=== PATIENT | male | born 1940 | race Caucasian/White ===

== ENCOUNTER 2021-03-19 12:37 | Inpatient (IN) ==
[2021-03-19] MEDS ORDERED: ONDANSETRON 4 MG/2 ML VIAL IV STA (13:08)
[2021-03-19 13:29] LABS: Basophils % 0.5 % (0.0-0.8); Eosinophils # 0.2 10*3/uL (0.0-0.87); Eosinophils % 3.6 % (0.00-10.9); Hematocrit 36.7 VOL% (42.0-52.0); Hemoglobin 11.8 GM/DL (14.0-18.0); Immature Granulocytes % 0.3 %; Immature Granulocytes Absolute 0.02 #; Lymphocytes % 16.8 % (21.2-54.2); Mean Corpuscular HGB Conc 32.2 GM/DL (32-36); Mean Corpuscular Volume 86.6 FL (87-102); Mean Platelet Volume 9.9 FL (9.6-12.0); Monocytes % 15.4 % (1.7-12.7); Neutrophils % 63.4 % (38.7-73.9); Platelet Count 342 T/CUMM (130-400); Red Blood Count 4.24 MC/CUMM (3.8-5.5); Red Cell Distribution Width 14.5 % (9.3-17.3); White Blood Count 5.8 T/CUMM (4-12)
[2021-03-19 13:54] LABS: Albumin 3.6 G/DL (3.4-5.0); Bilirubin,Total 0.9 MG/DL (0.20-1.00); Calcium 9.4 MG/DL (8.5-10.1); Potassium 4.6 MMOL/L (3.5-5.1); Total Protein 7.8 G/DL (6.4-8.2)
[2021-03-19] MEDS ORDERED: SODIUM CHLORIDE 0.9% 1,000 ML IV STA (14:42)
[2021-03-19] MEDS ORDERED: ONDANSETRON 4 MG/2 ML VIAL IV PRN (15:56)
[2021-03-19] MEDS ORDERED: DEXTROSE 50% 25 GM/50 ML SYRINGE IV PRN (15:56)
[2021-03-19] MEDS ORDERED: GLUCAGON 1 MG VIAL IM PRN (15:56)
[2021-03-19] MEDS ORDERED: ALBUTEROL/IPRATROPIUM 3 ML NEB RESP TX PRN (15:59)
[2021-03-19] MEDS ORDERED: PIPERACILLIN/TAZOBACTAM 3,375 MG in SODIUM CHLORIDE 0.9% 100 ML IV SCH (16:00)
[2021-03-19] MEDS ORDERED: VANCOMYCIN INJ 1,750 MG in SODIUM CHLORIDE 0.9% 250 ML IV SCH (16:00)
[2021-03-19] MEDS: LACTATED RINGERS 1,000 ML IV SCH (18:00)
[2021-03-19] MEDS: INSULIN LISPRO 100 UNIT/ML SUBCUT SCH (18:00)
[2021-03-19] MEDS ORDERED: DOCUSATE SODIUM 100 MG CAPSULE PO SCH (21:00)
[2021-03-19] MEDS: HYDROmorphone 2 MG/1 ML VIAL IV PRN (23:31)
[2021-03-20 03:09] LABS: Bilirubin,Urine Negative (Negative); Blood, Urine Negative (Negative); Glucose,Urine (UA) Negative (Negative); Ketones,Urine Negative (Negative); Mucus,Urine Occasional /LPF (Occasional); Nitrite,Urine Negative (Negative); Protein,Urine 100 MG/DL; RBC,Urine <1 /HPF (0-4); Squamous Epithelial Cell,Urine Occasional /HPF (0-10); Urine Appearance CLEAR (Clear); Urine Color Yellow (Yellow); Urine Specific Gravity 1.015 (1.001-1.035); Urine Urobilinogen < 2.0 EU/DL (<2.0)
[2021-03-20] MEDS: LACTATED RINGERS 1,000 ML IV SCH ×4 (04:28→23:05)
[2021-03-20 05:31] LABS: Basophils % 0.7 % (0.0-0.8); Eosinophils # 0.3 10*3/uL (0.0-0.87); Eosinophils % 4.9 % (0.00-10.9); Hematocrit 33.7 VOL% (42.0-52.0); Hemoglobin 10.5 GM/DL (14.0-18.0); Immature Granulocytes % 0.4 %; Immature Granulocytes Absolute 0.02 #; Lymphocytes # 1.3 10*3/uL (1.4-4.0); Lymphocytes % 23.8 % (21.2-54.2); Mean Corpuscular HGB Conc 31.2 GM/DL (32-36); Mean Corpuscular Volume 87.8 FL (87-102); Mean Platelet Volume 10.5 FL (9.6-12.0); Monocytes % 20.1 % (1.7-12.7); Neutrophils % 50.1 % (38.7-73.9); Platelet Count 284 T/CUMM (130-400); Red Blood Count 3.84 MC/CUMM (3.8-5.5); Red Cell Distribution Width 14.3 % (9.3-17.3); White Blood Count 5.5 T/CUMM (4-12)
[2021-03-20 05:49] LABS: Calcium 8.5 MG/DL (8.5-10.1); Osmolality,Calculated 283.7 MOS/KG (273-304); Potassium 4.3 MMOL/L (3.5-5.1)
[2021-03-20 05:57] LABS: Band Neutrophils 14 % (0-10); Eosinophils 7 % (0-10); Lymphocytes 27 % (20-55); Platelet Estimate Normal; Segmented Neutrophils 38 % (50-85); Total Cells Counted 100
[2021-03-20 05:58] LABS: Anisocytosis 1+; Smudge Cells Few
[2021-03-20] MEDS: INSULIN LISPRO 100 UNIT/ML SUBCUT SCH ×2 (08:25→18:36)
[2021-03-20] MEDS ORDERED: PANTOPRAZOLE 40 MG TABLET PO SCH (09:00)
[2021-03-20] MEDS: ENOXAPARIN 40 MG/0.4 ML SYRINGE SUBCUT SCH (10:02)
[2021-03-20] MEDS: PANTOPRAZOLE 40 MG VIAL IV SCH (10:02)
[2021-03-20] MEDS ORDERED: hydrALAZINE 20 MG/1 ML VIAL IV PRN (10:43)
[2021-03-20] MEDS: HYDROmorphone 2 MG/1 ML VIAL IV PRN ×2 (13:31→17:03)
[2021-03-21 05:43] LABS: Basophils % 0.5 % (0.0-0.8); Eosinophils # 0.2 10*3/uL (0.0-0.87); Hematocrit 32.4 VOL% (42.0-52.0); Hemoglobin 10.2 GM/DL (14.0-18.0); Immature Granulocytes % 0.5 %; Immature Granulocytes Absolute 0.04 #; Lymphocytes # 1.4 10*3/uL (1.4-4.0); Mean Corpuscular HGB Conc 31.5 GM/DL (32-36); Mean Corpuscular Volume 87.6 FL (87-102); Mean Platelet Volume 9.9 FL (9.6-12.0); Monocytes % 17.4 % (1.7-12.7); Neutrophils % 62.6 % (38.7-73.9); Platelet Count 273 T/CUMM (130-400); Red Cell Distribution Width 13.9 % (9.3-17.3); White Blood Count 8.5 T/CUMM (4-12)
[2021-03-21 06:05] LABS: Calcium 8.5 MG/DL (8.5-10.1); Osmolality,Calculated 280.5 MOS/KG (273-304)
[2021-03-21 06:07] LABS: Band Neutrophils 1 % (0-10); Eosinophils 2 % (0-10); Lymphocytes 17 % (20-55); Segmented Neutrophils 68 % (50-85); Total Cells Counted 100
[2021-03-21 06:08] LABS: Hypochromia 1+; Microcytosis 1+
[2021-03-21] MEDS: ENOXAPARIN 40 MG/0.4 ML SYRINGE SUBCUT SCH (08:42)
[2021-03-21] MEDS: PANTOPRAZOLE 40 MG VIAL IV SCH (08:43)
[2021-03-21] MEDS: LACTATED RINGERS 1,000 ML IV SCH ×3 (08:45→21:47)
[2021-03-21] MEDS: INSULIN LISPRO 100 UNIT/ML SUBCUT SCH ×2 (08:49→18:09)
[2021-03-21] MEDS: HYDROmorphone 2 MG/1 ML VIAL IV PRN ×3 (09:50→21:46)
[2021-03-21] MEDS: HEPARIN DRIP 25,000 UNITS/500 ML PREMIX IV SCH (12:03)
[2021-03-21] MEDS ORDERED: ACETAMINOPHEN 650 MG SUPP RECTAL PRN (17:08)
[2021-03-22] MEDS: HEPARIN DRIP 25,000 UNITS/500 ML PREMIX IV SCH ×2 (01:59→11:59)
[2021-03-22 02:20] LABS: Basophils % 0.4 % (0.0-0.8); Eosinophils # 0.2 10*3/uL (0.0-0.87); Eosinophils % 2.4 % (0.00-10.9); Hematocrit 31.3 VOL% (42.0-52.0); Hemoglobin 10.3 GM/DL (14.0-18.0); Immature Granulocytes % 0.4 %; Immature Granulocytes Absolute 0.04 #; Lymphocytes # 1.5 10*3/uL (1.4-4.0); Lymphocytes % 16.8 % (21.2-54.2); Mean Corpuscular HGB Conc 32.9 GM/DL (32-36); Mean Corpuscular Volume 85.5 FL (87-102); Mean Platelet Volume 9.6 FL (9.6-12.0); Monocytes % 19.6 % (1.7-12.7); Neutrophils % 60.4 % (38.7-73.9); Platelet Count 270 T/CUMM (130-400); Red Blood Count 3.66 MC/CUMM (3.8-5.5); Red Cell Distribution Width 13.7 % (9.3-17.3)
[2021-03-22 02:38] LABS: Calcium 8.8 MG/DL (8.5-10.1); Potassium 3.7 MMOL/L (3.5-5.1)
[2021-03-22 02:53] LABS: Band Neutrophils 2 % (0-10); Eosinophils 6 % (0-10); Lymphocytes 18 % (20-55); Segmented Neutrophils 54 % (50-85); Total Cells Counted 100
[2021-03-22 02:54] LABS: Hypochromia 2+; Platelet Estimate Normal; Reactive Lymphocytes Few
[2021-03-22] MEDS ORDERED: HEPARIN 5,000 UNIT/1 ML VIAL SUBCUT ONE (02:56)
[2021-03-22] MEDS: LACTATED RINGERS 1,000 ML IV SCH (03:09)
[2021-03-22] MEDS: INSULIN LISPRO 100 UNIT/ML SUBCUT SCH ×2 (07:40→17:08)
[2021-03-22] MEDS ORDERED: MAGNESIUM SULF RIDER 2 GM/50 ML PREMIX IV PRN (07:52)
[2021-03-22] MEDS ORDERED: MAGNESIUM SULF RIDER 4 GM/100 ML PREMIX IV PRN (07:52)
[2021-03-22] MEDS: PANTOPRAZOLE 40 MG VIAL IV SCH (09:15)
[2021-03-22] MEDS: HYDROmorphone 2 MG/1 ML VIAL IV PRN ×3 (09:15→20:41)
[2021-03-22] MEDS: METHOCARBAMOL INJ 500 MG in SODIUM CHLORIDE 0.9% 100 ML IV SCH ×2 (09:19→17:38)
[2021-03-22] MEDS: DEXTROSE 5% LACTATED RINGERS 1,000 ML IV SCH ×2 (09:19→17:38)
[2021-03-22] MEDS: AZITHROMYCIN INJ 500 MG in SODIUM CHLORIDE 0.9% 250 ML IV SCH (20:45)
[2021-03-23] MEDS: cefTRIAXone 1,000 MG in SODIUM CHLORIDE 0.9% 100 ML IV SCH ×2 (00:20→21:55)
[2021-03-23] MEDS: DEXTROSE 5% LACTATED RINGERS 1,000 ML IV SCH ×2 (01:13→16:31)
[2021-03-23] MEDS: METHOCARBAMOL INJ 500 MG in SODIUM CHLORIDE 0.9% 100 ML IV SCH ×4 (01:17→23:42)
[2021-03-23] MEDS: HYDROmorphone 2 MG/1 ML VIAL IV PRN ×4 (01:52→23:41)
[2021-03-23 02:16] LABS: Bacteria,Urine Occasional /HPF (Few); Bilirubin,Urine Negative (Negative); Blood, Urine Negative (Negative); Glucose,Urine (UA) Negative (Negative); Ketones,Urine 5 mg/dL (Negative); Mucus,Urine Occasional /LPF (Occasional); Nitrite,Urine Negative (Negative); Protein,Urine 100 MG/DL; RBC,Urine 2 /HPF (0-4); Squamous Epithelial Cell,Urine Occasional /HPF (0-10); Urine Appearance CLEAR (Clear); Urine Color Yellow (Yellow); Urine Specific Gravity 1.017 (1.001-1.035)
[2021-03-23 05:43] LABS: Basophils % 0.4 % (0.0-0.8); Eosinophils # 0.3 10*3/uL (0.0-0.87); Eosinophils % 3.1 % (0.00-10.9); Hematocrit 31.4 VOL% (42.0-52.0); Immature Granulocytes % 0.7 %; Immature Granulocytes Absolute 0.06 #; Lymphocytes # 1.5 10*3/uL (1.4-4.0); Mean Corpuscular HGB Conc 31.8 GM/DL (32-36); Mean Corpuscular Volume 86.5 FL (87-102); Mean Platelet Volume 10.1 FL (9.6-12.0); Monocytes % 16.5 % (1.7-12.7); Neutrophils % 62.3 % (38.7-73.9); Platelet Count 293 T/CUMM (130-400); Red Blood Count 3.63 MC/CUMM (3.8-5.5); Red Cell Distribution Width 13.8 % (9.3-17.3); White Blood Count 8.9 T/CUMM (4-12)
[2021-03-23 06:07] LABS: Eosinophils 2 % (0-10); Hypochromia Slight; Lymphocytes 21 % (20-55); Microcytosis Slight; Platelet Estimate Adequate; Segmented Neutrophils 65 % (50-85); Total Cells Counted 100
[2021-03-23 06:34] LABS: Calcium 8.6 MG/DL (8.5-10.1); Osmolality,Calculated 275.8 MOS/KG (273-304); Potassium 4.2 MMOL/L (3.5-5.1)
[2021-03-23] MEDS: PANTOPRAZOLE 40 MG VIAL IV SCH (09:09)
[2021-03-23] MEDS: INSULIN LISPRO 100 UNIT/ML SUBCUT SCH ×2 (09:09→16:30)
[2021-03-23] MEDS: HEPARIN DRIP 25,000 UNITS/500 ML PREMIX IV SCH (13:33)
[2021-03-23] MEDS: AZITHROMYCIN INJ 500 MG in SODIUM CHLORIDE 0.9% 250 ML IV SCH (20:30)
[2021-03-24] MEDS: HEPARIN DRIP 25,000 UNITS/500 ML PREMIX IV SCH ×2 (01:48→13:59)
[2021-03-24] MEDS: DEXTROSE 5% LACTATED RINGERS 1,000 ML IV SCH ×4 (03:36→21:47)
[2021-03-24 05:45] LABS: Basophils % 0.5 % (0.0-0.8); Eosinophils # 0.3 10*3/uL (0.0-0.87); Hemoglobin 9.1 GM/DL (14.0-18.0); Immature Granulocytes % 0.5 %; Immature Granulocytes Absolute 0.04 #; Lymphocytes # 1.6 10*3/uL (1.4-4.0); Lymphocytes % 20.1 % (21.2-54.2); Mean Corpuscular HGB Conc 31.4 GM/DL (32-36); Mean Corpuscular Volume 88.4 FL (87-102); Mean Platelet Volume 11.1 FL (9.6-12.0); Monocytes % 16.6 % (1.7-12.7); Neutrophils % 58.3 % (38.7-73.9); Platelet Count 269 T/CUMM (130-400); Red Blood Count 3.28 MC/CUMM (3.8-5.5); Red Cell Distribution Width 13.8 % (9.3-17.3)
[2021-03-24 06:16] LABS: Eosinophils 4 % (0-10); Lymphocytes 21 % (20-55); Platelet Estimate Adequate; Segmented Neutrophils 59 % (50-85); Total Cells Counted 100
[2021-03-24 06:17] LABS: Hypochromia 1+; Microcytosis 1+
[2021-03-24] MEDS: METHOCARBAMOL INJ 500 MG in SODIUM CHLORIDE 0.9% 100 ML IV SCH ×2 (08:12→15:41)
[2021-03-24] MEDS: INSULIN LISPRO 100 UNIT/ML SUBCUT SCH ×2 (08:12→16:15)
[2021-03-24] MEDS: PANTOPRAZOLE 40 MG VIAL IV SCH (08:12)
[2021-03-24] MEDS: HYDROmorphone 2 MG/1 ML VIAL IV PRN ×3 (11:38→22:43)
[2021-03-24] MEDS: AZITHROMYCIN INJ 500 MG in SODIUM CHLORIDE 0.9% 250 ML IV SCH (21:44)
[2021-03-24] MEDS: cefTRIAXone 1,000 MG in SODIUM CHLORIDE 0.9% 100 ML IV SCH (23:21)
[2021-03-25] MEDS: METHOCARBAMOL INJ 500 MG in SODIUM CHLORIDE 0.9% 100 ML IV SCH ×3 (00:23→17:12)
[2021-03-25] MEDS: HEPARIN DRIP 25,000 UNITS/500 ML PREMIX IV SCH ×2 (01:20→13:29)
[2021-03-25] MEDS: HYDROmorphone 2 MG/1 ML VIAL IV PRN ×4 (04:05→22:30)
[2021-03-25] MEDS: ACETAMINOPHEN 325 MG TABLET PO PRN (04:05)
[2021-03-25 05:11] LABS: Basophils # 0.1 10*3/uL (0.0-0.2); Basophils % 0.5 % (0.0-0.8); Eosinophils # 0.4 10*3/uL (0.0-0.87); Eosinophils % 4.1 % (0.00-10.9); Hematocrit 29.8 VOL% (42.0-52.0); Hemoglobin 9.7 GM/DL (14.0-18.0); Immature Granulocytes % 0.5 %; Immature Granulocytes Absolute 0.05 #; Lymphocytes # 1.7 10*3/uL (1.4-4.0); Lymphocytes % 18.5 % (21.2-54.2); Mean Corpuscular HGB Conc 32.6 GM/DL (32-36); Mean Corpuscular Volume 85.6 FL (87-102); Mean Platelet Volume 10.6 FL (9.6-12.0); Monocytes % 17.7 % (1.7-12.7); Neutrophils % 58.7 % (38.7-73.9); Platelet Count 306 T/CUMM (130-400); Red Blood Count 3.48 MC/CUMM (3.8-5.5); Red Cell Distribution Width 13.5 % (9.3-17.3); White Blood Count 9.2 T/CUMM (4-12)
[2021-03-25 05:31] LABS: Calcium 8.4 MG/DL (8.5-10.1); Osmolality,Calculated 276.7 MOS/KG (273-304); Potassium 3.2 MMOL/L (3.5-5.1)
[2021-03-25] MEDS: DEXTROSE 5% LACTATED RINGERS 1,000 ML IV SCH ×4 (05:36→23:17)
[2021-03-25 05:41] LABS: Eosinophils 5 % (0-10); Hypochromia 1+; Lymphocytes 25 % (20-55); Microcytosis 1+; Platelet Estimate Adequate; Segmented Neutrophils 53 % (50-85); Total Cells Counted 100
[2021-03-25] MEDS ORDERED: propofoL 200 MG/20 ML VIAL IV ONE (08:02)
[2021-03-25] MEDS ORDERED: LIDOCAINE 2% 5 ML VIAL ONE (08:02)
[2021-03-25] MEDS ORDERED: SEVOFLURANE 1 UNIT/15 MINUTE INH ONE ×5 (08:02→12:24)
[2021-03-25] MEDS ORDERED: SUCCINYLCHOLINE 200 MG/10 ML VIAL ONE (08:03)
[2021-03-25] MEDS ORDERED: ROCURONIUM 50 MG/5 ML VIAL IV ONE ×2 (08:03→10:20)
[2021-03-25] MEDS ORDERED: fentaNYL 100 MCG/2 ML VIAL ONE ×3 (08:03→11:05)
[2021-03-25] MEDS ORDERED: ONDANSETRON 4 MG/2 ML VIAL ONE (08:03)
[2021-03-25] MEDS ORDERED: ACETAMINOPHEN INJ 1,000 MG/100 ML VIAL IV ONE (08:04)
[2021-03-25] MEDS ORDERED: DEXAMETHASONE 4 MG/1 ML VIAL ONE (08:04)
[2021-03-25] MEDS ORDERED: ETOMIDATE 40 MG/20 ML VIAL IV ONE (08:06)
[2021-03-25] MEDS ORDERED: POTASSIUM CHLORIDE RIDER 10 MEQ/100 ML PREMIX IV PRN (08:27)
[2021-03-25] MEDS ORDERED: hydrALAZINE 20 MG/1 ML VIAL IV ONE (08:30)
[2021-03-25] MEDS ORDERED: MAGNESIUM SULF RIDER 4 GM/100 ML PREMIX IV ONE (08:30)
[2021-03-25] MEDS ORDERED: PHENYLEPHRINE 1 MG/10 ML SYRINGE IV ONE ×2 (09:26→10:01)
[2021-03-25] MEDS ORDERED: LACTATED RINGERS 1,000 ML IV SCH (09:30)
[2021-03-25] MEDS ORDERED: ceFAZolin 1,000 MG VIAL ONE (09:39)
[2021-03-25] MEDS ORDERED: ePHEDrine 50 MG/ML VIAL ONE (09:41)
[2021-03-25] MEDS: INSULIN LISPRO 100 UNIT/ML SUBCUT SCH ×2 (09:51→17:32)
[2021-03-25] MEDS: PANTOPRAZOLE 40 MG VIAL IV SCH (09:52)
[2021-03-25] MEDS ORDERED: LACTATED RINGERS 1,000 ML IV ONE ×2 (10:02→12:17)
[2021-03-25] MEDS ORDERED: GLYCOPYRROLATE 0.4 MG/2 ML VIAL ONE ×2 (10:06→12:11)
[2021-03-25] MEDS ORDERED: ALBUMIN 5% 12.5 GM/250 ML VIAL IV ONE ×2 (10:08)
[2021-03-25] MEDS ORDERED: NEOSTIGMINE 10 MG/10 ML VIAL ONE (12:12)
[2021-03-25 13:51] LABS: Bacteria,Urine Occasional /HPF (Few); Bilirubin,Urine Negative (Negative); Blood, Urine Small mg/dL (Negative); Glucose,Urine (UA) Negative (Negative); Ketones,Urine Negative (Negative); Mucus,Urine Occasional /LPF (Occasional); Nitrite,Urine Negative (Negative); Protein,Urine 100 MG/DL; RBC,Urine 6 /HPF (0-4); Squamous Epithelial Cell,Urine Occasional /HPF (0-10); Urine Appearance CLEAR (Clear); Urine Color Yellow (Yellow); Urine Specific Gravity 1.009 (1.001-1.035); Urine Urobilinogen < 2.0 EU/DL (<2.0)
[2021-03-25] MEDS: POTASSIUM CHLORIDE RIDER 10 MEQ/100 ML PREMIX IV SCH ×2 (14:24→16:14)
[2021-03-25] MEDS ORDERED: FUROSEMIDE 40 MG/4 ML VIAL IV ONE (15:42)
[2021-03-25] MEDS: AZITHROMYCIN INJ 500 MG in SODIUM CHLORIDE 0.9% 250 ML IV SCH (20:53)
[2021-03-25] MEDS: cefTRIAXone 1,000 MG in SODIUM CHLORIDE 0.9% 100 ML IV SCH (22:06)
[2021-03-26] MEDS: METHOCARBAMOL INJ 500 MG in SODIUM CHLORIDE 0.9% 100 ML IV SCH ×3 (01:30→17:01)
[2021-03-26] MEDS: HYDROmorphone 2 MG/1 ML VIAL IV PRN ×6 (01:39→23:10)
[2021-03-26 05:46] LABS: Basophils % 0.4 % (0.0-0.8); Eosinophils # 0.1 10*3/uL (0.0-0.87); Eosinophils % 1.7 % (0.00-10.9); Hemoglobin 9.3 GM/DL (14.0-18.0); Immature Granulocytes % 0.4 %; Immature Granulocytes Absolute 0.03 #; Lymphocytes % 13.1 % (21.2-54.2); Mean Corpuscular HGB Conc 32.1 GM/DL (32-36); Mean Corpuscular Volume 87.1 FL (87-102); Monocytes % 11.8 % (1.7-12.7); Neutrophils % 72.6 % (38.7-73.9); Platelet Count 332 T/CUMM (130-400); Red Blood Count 3.33 MC/CUMM (3.8-5.5); White Blood Count 7.8 T/CUMM (4-12)
[2021-03-26 06:23] LABS: Calcium 8.5 MG/DL (8.5-10.1); Osmolality,Calculated 277.7 MOS/KG (273-304); Potassium 3.5 MMOL/L (3.5-5.1)
[2021-03-26] MEDS ORDERED: LACTATED RINGERS 500 ML IV ONE (07:37)
[2021-03-26] MEDS: INSULIN LISPRO 100 UNIT/ML SUBCUT SCH ×2 (08:48→17:48)
[2021-03-26] MEDS: PANTOPRAZOLE 40 MG VIAL IV SCH (09:15)
[2021-03-26] MEDS: DEXTROSE 5% LACTATED RINGERS 1,000 ML IV SCH (09:16)
[2021-03-26] MEDS: HEPARIN DRIP 25,000 UNITS/500 ML PREMIX IV SCH ×2 (10:51→23:06)
[2021-03-26 14:37] LABS: Calcium 8.2 MG/DL (8.5-10.1); Osmolality,Calculated 278.5 MOS/KG (273-304); Potassium 3.7 MMOL/L (3.5-5.1)
[2021-03-26] MEDS: FAT EMULSION 20% 250 ML IV SCH (16:50)
[2021-03-26] MEDS: LACTATED RINGERS 1,000 ML IV SCH (17:00)
[2021-03-26] MEDS ORDERED: DEXTROSE 10% 1,000 ML IV PRN (17:00)
[2021-03-26] MEDS ORDERED: ZINC/COPPER/MANGANESE/SELENIUM 1 ML, MULTIVITAMIN INJ 10 ML in AMINO ACIDS/DEXT/LYTES 5... IV SCH (17:00)
[2021-03-26] MEDS: AZITHROMYCIN INJ 500 MG in SODIUM CHLORIDE 0.9% 250 ML IV SCH (20:49)
[2021-03-26] MEDS: cefTRIAXone 1,000 MG in SODIUM CHLORIDE 0.9% 100 ML IV SCH (22:30)
[2021-03-27] MEDS: INSULIN LISPRO 100 UNIT/ML SUBCUT SCH ×4 (00:43→17:35)
[2021-03-27] MEDS: METHOCARBAMOL INJ 500 MG in SODIUM CHLORIDE 0.9% 100 ML IV SCH ×3 (00:50→17:34)
[2021-03-27 05:19] LABS: Basophils # 0.1 10*3/uL (0.0-0.2); Basophils % 0.6 % (0.0-0.8); Eosinophils # 0.6 10*3/uL (0.0-0.87); Eosinophils % 6.6 % (0.00-10.9); Hematocrit 26.9 VOL% (42.0-52.0); Hemoglobin 8.3 GM/DL (14.0-18.0); Immature Granulocytes % 0.5 %; Immature Granulocytes Absolute 0.05 #; Lymphocytes # 1.4 10*3/uL (1.4-4.0); Lymphocytes % 14.1 % (21.2-54.2); Mean Corpuscular HGB Conc 30.9 GM/DL (32-36); Mean Corpuscular Volume 89.4 FL (87-102); Mean Platelet Volume 10.8 FL (9.6-12.0); Monocytes % 10.9 % (1.7-12.7); Neutrophils % 67.3 % (38.7-73.9); Platelet Count 323 T/CUMM (130-400); Red Blood Count 3.01 MC/CUMM (3.8-5.5); Red Cell Distribution Width 14.2 % (9.3-17.3); White Blood Count 9.6 T/CUMM (4-12)
[2021-03-27 05:31] LABS: Calcium 8.3 MG/DL (8.5-10.1); Osmolality,Calculated 276.7 MOS/KG (273-304); Potassium 3.4 MMOL/L (3.5-5.1)
[2021-03-27] MEDS: PANTOPRAZOLE 40 MG VIAL IV SCH (09:14)
[2021-03-27] MEDS: HYDROmorphone 2 MG/1 ML VIAL IV PRN ×4 (09:14→20:53)
[2021-03-27] MEDS: ENOXAPARIN 100 MG/ML SYRINGE SUBCUT SCH ×2 (10:30→23:41)
[2021-03-27] MEDS: FAT EMULSION 20% 250 ML IV SCH (15:45)
[2021-03-27] MEDS: LACTATED RINGERS 1,000 ML IV SCH (16:00)
[2021-03-27] MEDS: ZINC/COPPER/MANGANESE/SELENIUM 1 ML, MULTIVITAMIN INJ 10 ML in AMINO ACIDS/DEXT/LYTES 5... IV SCH (23:39)
[2021-03-27] MEDS: cefTRIAXone 1,000 MG in SODIUM CHLORIDE 0.9% 100 ML IV SCH (23:40)
[2021-03-27] MEDS: AZITHROMYCIN INJ 500 MG in SODIUM CHLORIDE 0.9% 250 ML IV SCH (23:40)
[2021-03-28] MEDS: INSULIN LISPRO 100 UNIT/ML SUBCUT SCH ×4 (01:40→18:59)
[2021-03-28] MEDS: METHOCARBAMOL INJ 500 MG in SODIUM CHLORIDE 0.9% 100 ML IV SCH ×3 (01:55→13:37)
[2021-03-28 06:40] LABS: Basophils % 0.6 % (0.0-0.8); Eosinophils # 0.5 10*3/uL (0.0-0.87); Eosinophils % 6.5 % (0.00-10.9); Hematocrit 27.2 VOL% (42.0-52.0); Hemoglobin 8.3 GM/DL (14.0-18.0); Immature Granulocytes % 0.8 %; Immature Granulocytes Absolute 0.06 #; Lymphocytes # 1.1 10*3/uL (1.4-4.0); Lymphocytes % 14.5 % (21.2-54.2); Mean Corpuscular HGB Conc 30.5 GM/DL (32-36); Mean Corpuscular Volume 90.1 FL (87-102); Mean Platelet Volume 10.2 FL (9.6-12.0); Monocytes % 13.3 % (1.7-12.7); Neutrophils % 64.3 % (38.7-73.9); Platelet Count 321 T/CUMM (130-400); Red Blood Count 3.02 MC/CUMM (3.8-5.5); Red Cell Distribution Width 14.1 % (9.3-17.3); White Blood Count 7.2 T/CUMM (4-12)
[2021-03-28 06:56] LABS: Calcium 8.6 MG/DL (8.5-10.1); Osmolality,Calculated 281.7 MOS/KG (273-304); Potassium 3.3 MMOL/L (3.5-5.1)
[2021-03-28 07:11] LABS: Risk Ratio 3.52
[2021-03-28] MEDS: HYDROmorphone 2 MG/1 ML VIAL IV PRN ×3 (07:35→19:50)
[2021-03-28 07:39] LABS: Alanine Aminotransferase 27 U/L (16-61); Alkaline Phosphatase 79 U/L (45-117); Aspartate Amino Transferase 20 U/L (0-37); Bilirubin,Direct < 0.100 MG/DL (0.0-0.20); Bilirubin,Indirect 0.3 MG/DL (0.0-1.0)
[2021-03-28] MEDS ORDERED: FUROSEMIDE 20 MG/2 ML VIAL IV ONE (08:00)
[2021-03-28] MEDS: PANTOPRAZOLE 40 MG VIAL IV SCH (08:25)
[2021-03-28] MEDS: POTASSIUM CHLORIDE RIDER 10 MEQ/100 ML PREMIX IV SCH ×2 (08:25→09:38)
[2021-03-28] MEDS ORDERED: DEXTROSE 10% 250 ML BAG IV PRN (09:00)
[2021-03-28] MEDS: ENOXAPARIN 100 MG/ML SYRINGE SUBCUT SCH ×2 (09:39→21:31)
[2021-03-28] MEDS: FAT EMULSION 20% 250 ML IV SCH (13:37)
[2021-03-28] MEDS: COPPER IV SCH (16:21)
[2021-03-28] MEDS: SELENIUM IV SCH (16:21)
[2021-03-28] MEDS: MANGANESE IV SCH (16:21)
[2021-03-28] MEDS: MULTIVITAMIN IV SCH (16:21)
[2021-03-28] MEDS: [UNRECOGNIZED DRUG - OTHER] IV SCH (16:21)
[2021-03-28] MEDS: INSULIN REGULAR IV SCH (16:21)
[2021-03-28] MEDS: METHOCARBAMOL INJ 1,000 MG in SODIUM CHLORIDE 0.9% 100 ML IV SCH ×2 (16:21→21:29)
[2021-03-28] MEDS: ZINC IV SCH (16:21)
[2021-03-28] MEDS: ZINC/COPPER/MANGANESE/SELENIUM 1 ML, MULTIVITAMIN INJ 10 ML in AMINO ACIDS/DEXT/LYTES 5... IV SCH (16:54)
[2021-03-28] MEDS: cefTRIAXone 1,000 MG in SODIUM CHLORIDE 0.9% 100 ML IV SCH (21:29)
[2021-03-29] MEDS: INSULIN LISPRO 100 UNIT/ML SUBCUT SCH ×4 (01:09→17:17)
[2021-03-29] MEDS: METHOCARBAMOL INJ 1,000 MG in SODIUM CHLORIDE 0.9% 100 ML IV SCH ×3 (04:51→20:48)
[2021-03-29] MEDS: HYDROmorphone 2 MG/1 ML VIAL IV PRN ×5 (04:51→20:50)
[2021-03-29 06:09] LABS: Basophils % 0.5 % (0.0-0.8); Eosinophils # 0.5 10*3/uL (0.0-0.87); Eosinophils % 5.8 % (0.00-10.9); Hematocrit 27.6 VOL% (42.0-52.0); Hemoglobin 8.7 GM/DL (14.0-18.0); Immature Granulocytes % 1.6 %; Immature Granulocytes Absolute 0.14 #; Lymphocytes # 1.2 10*3/uL (1.4-4.0); Lymphocytes % 13.5 % (21.2-54.2); Mean Corpuscular HGB Conc 31.5 GM/DL (32-36); Mean Corpuscular Volume 87.9 FL (87-102); Mean Platelet Volume 9.7 FL (9.6-12.0); Neutrophils % 67.6 % (38.7-73.9); Platelet Count 411 T/CUMM (130-400); Red Blood Count 3.14 MC/CUMM (3.8-5.5); White Blood Count 8.8 T/CUMM (4-12)
[2021-03-29 06:29] LABS: Calcium 8.8 MG/DL (8.5-10.1); Osmolality,Calculated 285.4 MOS/KG (273-304); Potassium 3.4 MMOL/L (3.5-5.1)
[2021-03-29 06:30] LABS: Hypochromia Slight; Platelet Estimate Increased
[2021-03-29] MEDS ORDERED: FUROSEMIDE 40 MG/4 ML VIAL IV ONE ×2 (07:30→16:00)
[2021-03-29] MEDS ORDERED: BISACODYL 10 MG SUPP RECTAL ONE (07:30)
[2021-03-29] MEDS ORDERED: POTASSIUM CHLORIDE 20 MEQ TABLET PO ONE (08:24)
[2021-03-29] MEDS: PANTOPRAZOLE 40 MG VIAL IV SCH (08:38)
[2021-03-29] MEDS: hydrALAZINE 20 MG/1 ML VIAL IV SCH ×3 (09:55→22:41)
[2021-03-29] MEDS: METOPROLOL TARTRATE 5 MG/5 ML VIAL IV SCH ×2 (09:55→18:31)
[2021-03-29] MEDS ORDERED: POTASSIUM CHLORIDE RIDER 20 MEQ/100 ML PREMIX IV ONE (10:00)
[2021-03-29] MEDS: ENOXAPARIN 100 MG/ML SYRINGE SUBCUT SCH ×2 (10:01→22:43)
[2021-03-29] MEDS: FAT EMULSION 20% 250 ML IV SCH (15:09)
[2021-03-29] MEDS: SELENIUM IV SCH (18:30)
[2021-03-29] MEDS: [UNRECOGNIZED DRUG - OTHER] IV SCH (18:30)
[2021-03-29] MEDS: COPPER IV SCH (18:30)
[2021-03-29] MEDS: INSULIN REGULAR IV SCH (18:30)
[2021-03-29] MEDS: MANGANESE IV SCH (18:30)
[2021-03-29] MEDS: MULTIVITAMIN IV SCH (18:30)
[2021-03-29] MEDS: ZINC IV SCH (18:30)
[2021-03-29] MEDS: cefTRIAXone 1,000 MG in SODIUM CHLORIDE 0.9% 100 ML IV SCH (22:38)
[2021-03-30] MEDS: INSULIN LISPRO 100 UNIT/ML SUBCUT SCH ×4 (00:52→17:17)
[2021-03-30] MEDS: METOPROLOL TARTRATE 5 MG/5 ML VIAL IV SCH ×4 (00:53→17:17)
[2021-03-30] MEDS: hydrALAZINE 20 MG/1 ML VIAL IV SCH ×4 (04:17→21:46)
[2021-03-30] MEDS: METHOCARBAMOL INJ 1,000 MG in SODIUM CHLORIDE 0.9% 100 ML IV SCH ×3 (05:34→20:18)
[2021-03-30 06:34] LABS: Basophils # 0.1 10*3/uL (0.0-0.2); Basophils % 0.6 % (0.0-0.8); Eosinophils # 0.6 10*3/uL (0.0-0.87); Eosinophils % 6.9 % (0.00-10.9); Hematocrit 28.1 VOL% (42.0-52.0); Hemoglobin 8.9 GM/DL (14.0-18.0); Immature Granulocytes % 1.6 %; Immature Granulocytes Absolute 0.14 #; Lymphocytes # 1.3 10*3/uL (1.4-4.0); Lymphocytes % 15.3 % (21.2-54.2); Mean Corpuscular HGB Conc 31.7 GM/DL (32-36); Mean Corpuscular Volume 85.7 FL (87-102); Neutrophils % 63.6 % (38.7-73.9); Platelet Count 476 T/CUMM (130-400); Red Blood Count 3.28 MC/CUMM (3.8-5.5); Red Cell Distribution Width 14.3 % (9.3-17.3); White Blood Count 8.7 T/CUMM (4-12)
[2021-03-30 06:41] LABS: Calcium 8.9 MG/DL (8.5-10.1); Osmolality,Calculated 287.4 MOS/KG (273-304); Potassium 3.3 MMOL/L (3.5-5.1)
[2021-03-30 07:07] LABS: Calcium 8.7 MG/DL (8.5-10.1); Osmolality,Calculated 286.4 MOS/KG (273-304); Potassium 3.3 MMOL/L (3.5-5.1)
[2021-03-30] MEDS: ENOXAPARIN 100 MG/ML SYRINGE SUBCUT SCH ×2 (10:18→21:46)
[2021-03-30] MEDS: POTASSIUM CHLORIDE RIDER 10 MEQ/100 ML PREMIX IV SCH ×2 (10:20→11:35)
[2021-03-30] MEDS: PANTOPRAZOLE 40 MG VIAL IV SCH (10:21)
[2021-03-30] MEDS ORDERED: FUROSEMIDE 40 MG/4 ML VIAL IV ONE (10:53)
[2021-03-30] MEDS: HYDROmorphone 2 MG/1 ML VIAL IV PRN ×2 (11:57→20:19)
[2021-03-30] MEDS: FAT EMULSION 20% 250 ML IV SCH (15:56)
[2021-03-30] MEDS ORDERED: FUROSEMIDE 20 MG/2 ML VIAL IV SCH (16:00)
[2021-03-30] MEDS: MANGANESE IV SCH (17:16)
[2021-03-30] MEDS: ZINC IV SCH (17:16)
[2021-03-30] MEDS: COPPER IV SCH (17:16)
[2021-03-30] MEDS: INSULIN REGULAR IV SCH (17:16)
[2021-03-30] MEDS: SELENIUM IV SCH (17:16)
[2021-03-30] MEDS: [UNRECOGNIZED DRUG - OTHER] IV SCH (17:16)
[2021-03-30] MEDS: MULTIVITAMIN IV SCH (17:16)
[2021-03-30] MEDS ORDERED: INSULIN GLARGINE 100 UNIT/ML SUBCUT SCH (21:00)
[2021-03-30] MEDS: cefTRIAXone 1,000 MG in SODIUM CHLORIDE 0.9% 100 ML IV SCH (21:45)
[2021-03-31] MEDS: INSULIN LISPRO 100 UNIT/ML SUBCUT SCH ×5 (00:06→23:45)
[2021-03-31] MEDS: METOPROLOL TARTRATE 5 MG/5 ML VIAL IV SCH ×2 (00:06→06:17)
[2021-03-31] MEDS: hydrALAZINE 20 MG/1 ML VIAL IV SCH ×2 (03:45→09:47)
[2021-03-31] MEDS: METHOCARBAMOL INJ 1,000 MG in SODIUM CHLORIDE 0.9% 100 ML IV SCH ×3 (06:16→20:43)
[2021-03-31 07:31] LABS: Basophils # 0.1 10*3/uL (0.0-0.2); Basophils % 0.6 % (0.0-0.8); Eosinophils # 0.7 10*3/uL (0.0-0.87); Eosinophils % 8.9 % (0.00-10.9); Hematocrit 28.3 VOL% (42.0-52.0); Hemoglobin 9.2 GM/DL (14.0-18.0); Immature Granulocytes % 1.8 %; Immature Granulocytes Absolute 0.14 #; Lymphocytes # 1.3 10*3/uL (1.4-4.0); Lymphocytes % 16.3 % (21.2-54.2); Mean Corpuscular HGB Conc 32.5 GM/DL (32-36); Mean Corpuscular Volume 85.8 FL (87-102); Mean Platelet Volume 9.9 FL (9.6-12.0); Monocytes % 12.3 % (1.7-12.7); Neutrophils % 60.1 % (38.7-73.9); Platelet Count 503 T/CUMM (130-400); Red Cell Distribution Width 14.5 % (9.3-17.3); White Blood Count 7.8 T/CUMM (4-12)
[2021-03-31 08:09] LABS: Calcium 9.3 MG/DL (8.5-10.1); Osmolality,Calculated 282.7 MOS/KG (273-304); Potassium 3.5 MMOL/L (3.5-5.1)
[2021-03-31] MEDS: ENOXAPARIN 100 MG/ML SYRINGE SUBCUT SCH ×2 (09:47→22:33)
[2021-03-31] MEDS: PANTOPRAZOLE 40 MG VIAL IV SCH (09:47)
[2021-03-31] MEDS ORDERED: METOPROLOL SUCCINATE XL 25 MG TABLET PO ONE (11:09)
[2021-03-31] MEDS: VALSARTAN 80 MG TABLET PO SCH (12:59)
[2021-03-31] MEDS: HYDROmorphone 2 MG/1 ML VIAL IV PRN ×2 (13:00→20:44)
[2021-03-31] MEDS: FAT EMULSION 20% 250 ML IV SCH (15:26)
[2021-03-31] MEDS: SELENIUM IV SCH (17:23)
[2021-03-31] MEDS: MULTIVITAMIN IV SCH (17:23)
[2021-03-31] MEDS: COPPER IV SCH (17:23)
[2021-03-31] MEDS: MANGANESE IV SCH (17:23)
[2021-03-31] MEDS: ZINC IV SCH (17:23)
[2021-03-31] MEDS: INSULIN REGULAR IV SCH (17:23)
[2021-03-31] MEDS: [UNRECOGNIZED DRUG - OTHER] IV SCH (17:23)
[2021-03-31] MEDS ORDERED: INSULIN GLARGINE 100 UNIT/ML SUBCUT SCH (21:00)
[2021-03-31] MEDS: cefTRIAXone 1,000 MG in SODIUM CHLORIDE 0.9% 100 ML IV SCH (21:21)
[2021-04-01] MEDS: METHOCARBAMOL INJ 1,000 MG in SODIUM CHLORIDE 0.9% 100 ML IV SCH ×3 (04:18→20:57)
[2021-04-01] MEDS: INSULIN LISPRO 100 UNIT/ML SUBCUT SCH ×3 (06:04→17:37)
[2021-04-01 06:14] LABS: Basophils # 0.1 10*3/uL (0.0-0.2); Basophils % 0.8 % (0.0-0.8); Eosinophils # 0.8 10*3/uL (0.0-0.87); Eosinophils % 8.9 % (0.00-10.9); Hematocrit 28.7 VOL% (42.0-52.0); Hemoglobin 9.1 GM/DL (14.0-18.0); Immature Granulocytes % 1.6 %; Immature Granulocytes Absolute 0.14 #; Lymphocytes # 1.4 10*3/uL (1.4-4.0); Lymphocytes % 15.6 % (21.2-54.2); Mean Corpuscular HGB Conc 31.7 GM/DL (32-36); Mean Platelet Volume 9.9 FL (9.6-12.0); Monocytes % 13.6 % (1.7-12.7); Neutrophils % 59.5 % (38.7-73.9); Platelet Count 499 T/CUMM (130-400); Red Cell Distribution Width 14.6 % (9.3-17.3)
[2021-04-01 06:32] LABS: Calcium 8.7 MG/DL (8.5-10.1); Potassium 4.1 MMOL/L (3.5-5.1)
[2021-04-01] MEDS: VALSARTAN 80 MG TABLET PO SCH (09:21)
[2021-04-01] MEDS: METOPROLOL SUCCINATE XL 25 MG TABLET PO SCH (09:21)
[2021-04-01] MEDS: PANTOPRAZOLE 40 MG VIAL IV SCH (09:23)
[2021-04-01] MEDS: ENOXAPARIN 100 MG/ML SYRINGE SUBCUT SCH (10:49)
[2021-04-01] MEDS: HYDROmorphone 2 MG/1 ML VIAL IV PRN ×2 (12:34→17:36)
[2021-04-01] MEDS: BENZONATATE 100 MG CAPSULE PO SCH ×2 (14:37→20:57)
[2021-04-01] MEDS: FAT EMULSION 20% 250 ML IV SCH (14:38)
[2021-04-01] MEDS ORDERED: TUBERCULIN SKIN TEST 0.1 ML SYRINGE INTRADERM ONE (15:00)
[2021-04-01] MEDS: [UNRECOGNIZED DRUG - OTHER] IV SCH (17:26)
[2021-04-01] MEDS: SELENIUM IV SCH (17:26)
[2021-04-01] MEDS: ZINC IV SCH (17:26)
[2021-04-01] MEDS: COPPER IV SCH (17:26)
[2021-04-01] MEDS: MANGANESE IV SCH (17:26)
[2021-04-01] MEDS: MULTIVITAMIN IV SCH (17:26)
[2021-04-01] MEDS: INSULIN REGULAR IV SCH (17:26)
[2021-04-01] MEDS: APIXABAN 5 MG TABLET PO SCH (20:57)
[2021-04-02] MEDS: INSULIN LISPRO 100 UNIT/ML SUBCUT SCH ×4 (00:21→18:37)
[2021-04-02 01:33] LABS: Basophils # 0.1 10*3/uL (0.0-0.2); Eosinophils # 0.8 10*3/uL (0.0-0.87); Eosinophils % 9.6 % (0.00-10.9); Hematocrit 28.8 VOL% (42.0-52.0); Immature Granulocytes % 1.3 %; Immature Granulocytes Absolute 0.11 #; Lymphocytes # 1.6 10*3/uL (1.4-4.0); Lymphocytes % 18.5 % (21.2-54.2); Mean Corpuscular HGB Conc 31.3 GM/DL (32-36); Mean Corpuscular Volume 87.8 FL (87-102); Mean Platelet Volume 9.6 FL (9.6-12.0); Monocytes % 13.5 % (1.7-12.7); Neutrophils % 56.1 % (38.7-73.9); Platelet Count 513 T/CUMM (130-400); Red Blood Count 3.28 MC/CUMM (3.8-5.5); Red Cell Distribution Width 14.7 % (9.3-17.3); White Blood Count 8.4 T/CUMM (4-12)
[2021-04-02 02:05] LABS: Calcium 9.1 MG/DL (8.5-10.1); Potassium 4.2 MMOL/L (3.5-5.1)
[2021-04-02] MEDS: METHOCARBAMOL INJ 1,000 MG in SODIUM CHLORIDE 0.9% 100 ML IV SCH ×3 (05:28→22:25)
[2021-04-02] MEDS: VALSARTAN 80 MG TABLET PO SCH (10:06)
[2021-04-02] MEDS: APIXABAN 5 MG TABLET PO SCH ×2 (10:06→22:24)
[2021-04-02] MEDS: PANTOPRAZOLE 40 MG VIAL IV SCH (10:07)
[2021-04-02] MEDS: BENZONATATE 100 MG CAPSULE PO SCH ×3 (10:07→22:24)
[2021-04-02] MEDS: METOPROLOL SUCCINATE XL 25 MG TABLET PO SCH (10:07)
[2021-04-02] MEDS: ACETAMINOPHEN 325 MG TABLET PO PRN ×2 (15:16→22:24)
[2021-04-02] MEDS: FAT EMULSION 20% 250 ML IV SCH (15:39)
[2021-04-03] MEDS: INSULIN LISPRO 100 UNIT/ML SUBCUT SCH ×3 (01:57→11:38)
[2021-04-03] MEDS: METHOCARBAMOL INJ 1,000 MG in SODIUM CHLORIDE 0.9% 100 ML IV SCH ×2 (05:37→13:17)
[2021-04-03 08:09] LABS: Calcium 9.1 MG/DL (8.5-10.1); Osmolality,Calculated 278.7 MOS/KG (273-304); Potassium 4.6 MMOL/L (3.5-5.1)
[2021-04-03] MEDS: APIXABAN 5 MG TABLET PO SCH (08:36)
[2021-04-03] MEDS: BENZONATATE 100 MG CAPSULE PO SCH (08:36)
[2021-04-03] MEDS: PANTOPRAZOLE 40 MG VIAL IV SCH (08:36)
[2021-04-03] MEDS: VALSARTAN 80 MG TABLET PO SCH (08:36)
[2021-04-03] MEDS: METOPROLOL SUCCINATE XL 25 MG TABLET PO SCH (08:36)
[2021-04-03] MEDS ORDERED: MORPHINE 2 MG/1 ML SYRINGE IV PRN ×2 (09:35)
[2021-04-03 09:44] LABS: Basophils # 0.1 10*3/uL (0.0-0.2); Basophils % 0.9 % (0.0-0.8); Eosinophils # 0.8 10*3/uL (0.0-0.87); Eosinophils % 8.8 % (0.00-10.9); Hematocrit 27.9 VOL% (42.0-52.0); Immature Granulocytes Absolute 0.09 #; Lymphocytes # 1.5 10*3/uL (1.4-4.0); Lymphocytes % 17.2 % (21.2-54.2); Mean Corpuscular HGB Conc 32.3 GM/DL (32-36); Mean Corpuscular Volume 86.6 FL (87-102); Mean Platelet Volume 9.9 FL (9.6-12.0); Monocytes % 12.1 % (1.7-12.7); Platelet Count 591 T/CUMM (130-400); Red Blood Count 3.22 MC/CUMM (3.8-5.5); Red Cell Distribution Width 14.4 % (9.3-17.3); White Blood Count 8.6 T/CUMM (4-12)
[2021-04-03 10:28] VITALS: BP 141/61
== END 2021-04-03 13:08 | disposition swing bed (61) | DRG 335 ==
LOC: EDUNIT# → EDBD → N.ED 12:37 → N.3E 15:59
PROVIDERS: ADMIT Student in an Organized Health Care Education/Training Program; ATTEND Student in an Organized Health Care Education/Training Program